=== PATIENT | male | born 1960 | race Caucasian/White ===

== ENCOUNTER 2016-07-19 15:57 | Emergency (ER) | payer OTHER ==
[~2016-07-19] VITALS: Ht 182.9 cm; Wt 93.0 kg
[~2016-07-19 15:57] MED LIST: ATORVASTATIN CA40 MG PO; BUFFERIN LOW DO81 MG PO; PLAVIX 75MG TAB75 MG PO
--- NOTE | 2016-07-19 16:17 | ED GI/GU/ABDOMINAL COMPLAINT ---
History of Present Illness General Chief Complaint: General Adult Stated Complaint: LOWER BACK PAIN, BLOOD IN URINE HAD MRI 07-19 Vital Signs & Intake/Output Vital Signs & Intake/Output Vital Signs Date Time Temp Pulse Resp B/P B/P Pulse O2 O2 Flow FiO2 Mean Ox Delivery Rate 07/19 1606 97.4 73 16 146/88 97 Room Air Allergies Coded Allergies: oxycodone (From OXYCONTIN) (VOMITING 07/19/16) Reconcile Medications Aspirin (Children's Aspirin) 81 MG TAB 81 MG PO DAILY stroke Atorvastatin Calcium (Lipitor) 40 MG TAB 40 MG PO 1700 stroke Clopidogrel Bisulfate (Plavix) 75 MG TAB 1 TAB PO DAILY STROKE Triage Note: PT STATES HE HAS BLOOD IN HIS URINE. PT REPORTS JUST NOTICING IN 15 MINUTES AGO Past History Travel History Traveled to [place] past 21 day No Medical History Neurological: NONE EENT: NONE Cardiovascular: NONE Respiratory: NONE Gastrointestinal: NONE Hepatic: NONE Renal: NONE Musculoskeletal: chronic back pain, disk herniation Psychiatric: NONE Endocrine: NONE Blood Disorders: NONE Cancer(s): NONE History of MRSA: No History of VRE: No History of CDIFF: No Influenza Vaccine: 11/23/13 Surgical History Surgical History: non-contributory Psychosocial History Who do you live with Patient/Self Services at Home None What is your primary language Setswana Tobacco Use: Current Daily Use Daily Tobacco Use Amount/Type: => 5 Cigarettes daily ETOH Use: occasional use Illicit Drug Use: marijuana Departure Departure Condition: Stable Referrals: DELMY MITCHELL,TYESHA Munson (PCP/Family) Departure Forms: Customer Survey General Discharge Information
--- NOTE | 2016-07-19 16:35 | ED GI/GU/ABDOMINAL COMPLAINT ---
See Addendum History of Present Illness General Chief Complaint: General Adult Stated Complaint: LOWER BACK PAIN, BLOOD IN URINE HAD MRI 07-19 Source: patient Exam Limitations: no limitations Vital Signs & Intake/Output Vital Signs & Intake/Output Vital Signs Date Time Temp Pulse Resp B/P B/P Pulse O2 O2 Flow FiO2 Mean Ox Delivery Rate 07/19 1811 97.0 74 22 148/89 96 Room Air 07/19 1703 98.0 70 20 133/74 96 Room Air 07/19 1606 97.4 73 16 146/88 97 Room Air Allergies Coded Allergies: oxycodone (From OXYCONTIN) (VOMITING 07/19/16) Reconcile Medications Aspirin (Ecotrin*) 81 MG TABLET.DR 1 TAB PO DAILY HEART/BLOOD (Reported) Atorvastatin Calcium (Lipitor) 40 MG TABLET 1 TAB PO DAILY CHOLESTEROL ( Reported) Clopidogrel Bisulfate (Plavix) 75 MG TABLET 1 TAB PO DAILY BLOOD THINNER ( Reported) Cyclobenzaprine HCl 10 MG TABLET 1 TAB PO TID MUSCLE SPASMS (Reported) Gabapentin (Neurontin) (Unknown Strength) CAPSULE (Unknown Dose) PO TID NERVE PAIN (Reported) Hydrocodone/Acetaminophen ([place] 7.5-325 Tablet) 7.5 MG-325 MG TABLET 1 TAB PO PRN PAIN (Reported) Triage Note: PT STATES HE HAS BLOOD IN HIS URINE. PT REPORTS JUST NOTICING IN 15 MINUTES AGO Triage Nurses Notes Reviewed? yes Duration: minute(s): (ALSO) Timing: single episode today Quality/Severity: severe HPI: Patient presents for evaluation of abrupt onset of hematuria that began shortly before arrival to the emergency department. Patient states that he has chronic back pain and this is being evaluated by an MRI scan. Patient denies any unusual back pain associated with the bloody urine. He does refer a past history of bladder cancer with subsequent resection. He denies any associated fever or cold symptoms. Past History Travel History Traveled to [place] past 21 day No Medical History Any Pertinent Medical History? see below for history Neurological: NONE EENT: NONE Cardiovascular: NONE Respiratory: NONE Gastrointestinal: NONE Hepatic: NONE Renal: NONE Musculoskeletal: chronic back pain, disk herniation Psychiatric: NONE Endocrine: NONE Blood Disorders: NONE Cancer(s): NONE History of MRSA: No History of VRE: No History of CDIFF: No Influenza Vaccine: 11/23/13 Surgical History Surgical History: non-contributory Psychosocial History Who do you live with Patient/Self Services at Home None What is your primary language Turkish Tobacco Use: Current Daily Use Daily Tobacco Use Amount/Type: => 5 Cigarettes daily ETOH Use: occasional use Illicit Drug Use: marijuana Family History Hx Contributory? No Review of Systems Review of Systems Constitutional: Reports: no symptoms. EENTM: Reports: no symptoms. Respiratory: Reports: no symptoms. Cardiovascular: Reports: no symptoms. GI: Reports: no symptoms. Genitourinary: Reports: see HPI. Musculoskeletal: Reports: no symptoms. Skin: Reports: no symptoms. Neurological/Psychological: Reports: no symptoms. Hematologic/Endocrine: Reports: no symptoms. Immunologic/Allergic: Reports: no symptoms. All Other Systems: Reviewed and Negative Physical Exam Physical Exam Gastrointestinal: SEE BELOW Comments: Gen.: Well-nourished, well-developed, no acute respiratory distress. Head: Normocephalic, atraumatic. Eyes: Normal inspection bilaterally Ears: Normal inspection bilaterally Nose: Normal inspection Throat/mouth : Moist mucosa Neck: Supple, full range of motion, no goiter Heart: Regular rate and rhythm Lungs: Quiet respirations Chest: Nontender Back: Normal range of motion Abdomen: Soft, nontender, nondistended, normal bowel sounds Extremities: Normal range of motion grossly, equal radial pulses, no cyanosis clubbing or edema Neurologic: Cranial nerves grossly intact, speech is clear Skin: warm and dry Psychiatric: Calm, cooperative, no apparent delusions or hallucinations Core Measures ACS in differential dx? No Severe Sepsis Present: No Septic Shock Present: No Progress Differential Diagnosis: UTI/pyelo, BLADDER CANCER Plan of Care: Orders Procedure Date/time Status URINALYSIS 07/19 1634 Complete PROTHROMBIN TIME 07/19 1634 Active CBC WITHOUT DIFFERENTIAL 07/19 1634 Complete BASIC METABOLIC PANEL 07/19 1634 Complete Laboratory Tests 07/19/16 1657: Urine Color BLDY H, Urine Clarity TURBD H, Urine pH 6.5, Ur Specific [place] 1.010, Urine Protein 100 H, Urine Ketones TRACE H, Urine Nitrite POS H, Urine Bilirubin NEG@ICTO, Urine Urobilinogen 0.2, Ur Leukocyte Esterase SMALL H, Ur Microscopic SEDIMENT EXAMINED, Urine RBC PACKD H, Urine WBC 5-10 H, Urine Hemoglobin LARGE H, Urine Glucose NEG 07/19/16 1654: Anion Gap 10, Estimated GFR > 60, BUN/Creatinine Ratio 14.0, Glucose 91, Calcium 9.2, PT Pending, INR Pending, CBC w Diff NO MAN DIFF REQ, RBC 4.53 L, MCV 94.9 H, MCH 32.2 H, RDW 13.5, MPV 8.3, Gran % 56.1, Lymphocytes % 27.6, Monocytes % 12.7 H, Eosinophils % 2.8, Basophils % 0.8, Absolute Granulocytes 3.3, Absolute Lymphocytes 1.6, Absolute Monocytes 0.7 H, Absolute Eosinophils 0.2, Absolute Basophils 0, PUBS MCHC 33.9 Diagnostic Imaging: Discussed w/RAD: CT Scan. Radiology Impression: PATIENT: EFRAÍN HUERTA PRESENT AGE: 56 PATIENT ACCOUNT NO: [id number] : 58 LOCATION: [facility] ORDERING PHYSICIAN: NIKOLAS VALDEZ MD SERVICE DATE: 07/19/16 EXAM TYPE: CAT - CT ABD & PELVIS W/O IV CONTRAS EXAMINATION: CT ABDOMEN AND PELVIS WITHOUT CONTRAST CLINICAL INFORMATION: Lower back pain and hematuria. Renal colic. COMPARISON: Multiple priors, most recent abdominal ultrasound dated 11/09/[address] abdomen and pelvis dated 04/09/2007. TECHNIQUE: Multidetector volumetric imaging was performed from the superior aspect of the liver through the pubic symphysis. Sagittal and coronal reformatted images were obtained on the technologist's workstation. DLP: 354.8 mGy-cm. FINDINGS: LUNG BASES: The visualized lung bases are unremarkable. LIVER, GALLBLADDER, AND BILIARY TREE: The liver is normal in size, shape, and attenuation. No focal hepatic lesion or biliary ductal dilatation is present. The gallbladder is unremarkable with no evidence of radiopaque gallstones, gallbladder wall thickening, or obvious pericholecystic inflammatory changes. PANCREAS: Unremarkable. SPLEEN: Unremarkable. ADRENAL GLANDS: Unremarkable. KIDNEYS AND URETERS: The kidneys are normal in size, shape, and attenuation. No hydronephrosis, hydroureter, or calculi seen. No perinephric stranding. BLADDER: Partially distended. There is a 3.6 x 3.8 x 2.8 cm soft tissue mass within the posterior left urinary bladder with adjacent bladder wall thickening. A neoplastic process is suspected and direct visualization as well as histopathologic correlation is recommended to help further characterize. There is no associated left-sided hydronephrosis. GASTROINTESTINAL TRACT: There is a sliding-type hiatal hernia. There is no large or small bowel obstruction. The appendix is normal. There is no intra-abdominal free air or free fluid. ABDOMINAL WALL: No significant hernia is appreciated. LYMPH NODES: Normal. VASCULAR: The abdominal aorta is nondilated. There are scattered atherosclerotic calcifications throughout the abdominal aorta and its branch vessels. The IVC is unremarkable. PELVIC VISCERA: The prostate and seminal vesicles are unremarkable. There are multiple phleboliths within the pelvis. OSSEOUS STRUCTURES: There is no lytic or blastic osseous lesion. A right -sided laminectomy is noted at L4-L5. There are mild degenerative changes within the visualized lower thoracic and lumbar spine. IMPRESSION: 1. Soft tissue mass within the posterior left aspect of the urinary bladder with associated adjacent bladder wall thickening. A neoplastic process is suspected and direct visualization as well as histopathologic correlation is recommended to help further characterize. No associated hydroureter. 2. No nephrolithiasis or hydronephrosis. 3. No large or small bowel obstruction. Normal appendix. DICTATED BY: SUBHA WOO MD DATE/TIME DICTATED:07/19/161755 RIB CHOPPER:SAY DATE/TIME TRANSCRIBED:07/19/161755 CONFIDENTIAL, DO NOT COPY WITHOUT APPROPRIATE AUTHORIZATION. <Electronically signed in Other Vendor System> SIGNED BY: SUBHA WOO MD 07/19/16 5714 Initial ED EKG: none Comments: 07/19/2016 6:31:08 PM I have updated Efraín on his test results. He states his urologist did recently so I have paged Dr. Benoit. Departure Departure Disposition: HOME OR SELF CARE Condition: Stable Clinical Impression Primary Impression: Bladder cancer Qualifiers: Bladder location: posterior wall Qualified Code: C67.4 - Malignant neoplasm of posterior wall of bladder Referrals: MARÍA MITCEHLL,CAMACHO BROCK MD,TYESHA Munson (PCP/Family) Additional Instructions: Follow-up with Dr. Hobson to reevaluate your bladder, given the mass seen on CAT scan. Maintained a good fluid intake. Return if you're unable to urinate or empty her bladder fully with or any other concerns or worsening. Please note that there might be incidental findings in your evaluation that are unrelated to the current emergency department visit. Please notify your primary care doctor about this emergency department visit in order to obtain and review all of the testing performed so that these incidental findings can be monitored as needed. If you had an x-ray performed, please understand that some fractures may not be seen on the initial set of x-rays. If your symptoms persist you might need a repeat set of x-rays to check for such a fracture. If you had a laceration evaluated, please understand that foreign bodies such as glass or wood may not be visible to the naked eye or on plain x-rays. If the wound becomes red, swollen, increasingly more painful or if there is any drainage from the wound, please have it reevaluated by a physician for the possibility of a retained foreign body. Thank you for choosing the [facility] Department for your care. It was a pleasure to serve you today. Nikolas Valdez M.D. [facility] Departure Forms: Customer Survey General Discharge Information
[2016-07-19 17:10] LABS: ABSOLUTE BASOPHIL COUNT 0 /CUMM (0.0-0.2); ABSOLUTE EOSINOPHIL COUNT 0.2 /CUMM (0.0-0.7); ABSOLUTE GRANULOCYTE CT 3.3 /CUMM (1.4-6.5); ABSOLUTE LYMPH COUNT 1.6 /CUMM (1.2-3.4); ABSOLUTE MONOCYTE COUNT 0.7 /CUMM (0.10-0.60); BASOPHIL % 0.8 % (0.0-2.0); EOSINOPHIL % 2.8 % (0-5); GRANULOCYTE % 56.1 % (42.2-75.2); MEAN CORPUSCULAR HGB 32.2 PG (27.0-31.0); MEAN CORPUSCULAR HGB CONC 33.9 G/DL (33.0-37.0); MEAN CORPUSCULAR VOLUME 94.9 FL (80.0-94.0); MEAN PLATELET VOLUME 8.3 FL (7.4-10.4); PLATELET COUNT 199 /CUMM (130-400); RBC DISTRIBUTION WIDTH 13.5 % (11.5-14.5); RED BLOOD CELL CT 4.53 /CUMM (4.70-6.10); WHITE BLOOD CELL COUNT 5.9 /CUMM (4.8-10.8)
[2016-07-19 17:18] LABS: PT 11.6 SEC (9.4-12.5)
[2016-07-19] MEDS ORDERED: LIPITOR40 M1 PO (17:45)
[2016-07-19] MEDS ORDERED: ASPIRIN EC81 M1 PO (17:46)
[2016-07-19] MEDS ORDERED: PLAVIX75 M1 PO (17:46)
[2016-07-19] MEDS ORDERED: NEURONTIN300 M1 PO (17:46)
[2016-07-19] MEDS ORDERED: NORCO 7.5-3251 EACH PO (17:47)
[2016-07-19] MEDS ORDERED: CYCLOBENZAPRINE10 M1 PO (17:47)
[2016-07-19 18:11] VITALS: BP 148/89
--- NOTE | 2016-07-19 18:15 | CT SCAN REPORT ---
EXAMINATION: CT ABDOMEN AND PELVIS WITHOUT CONTRAST CLINICAL INFORMATION: Lower back pain and hematuria. Renal colic. COMPARISON: Multiple priors, most recent abdominal ultrasound dated 11/09/[address] abdomen and pelvis dated 04/09/2007. TECHNIQUE: Multidetector volumetric imaging was performed from the superior aspect of the liver through the pubic symphysis. Sagittal and coronal reformatted images were obtained on the technologist's workstation. DLP: 354.8 mGy-cm. FINDINGS: LUNG BASES: The visualized lung bases are unremarkable. LIVER, GALLBLADDER, AND BILIARY TREE: The liver is normal in size, shape, and attenuation. No focal hepatic lesion or biliary ductal dilatation is present. The gallbladder is unremarkable with no evidence of radiopaque gallstones, gallbladder wall thickening, or obvious pericholecystic inflammatory changes. PANCREAS: Unremarkable. SPLEEN: Unremarkable. ADRENAL GLANDS: Unremarkable. KIDNEYS AND URETERS: The kidneys are normal in size, shape, and attenuation. No hydronephrosis, hydroureter, or calculi seen. No perinephric stranding. BLADDER: Partially distended. There is a 3.6 x 3.8 x 2.8 cm soft tissue mass within the posterior left urinary bladder with adjacent bladder wall thickening. A neoplastic process is suspected and direct visualization as well as histopathologic correlation is recommended to help further characterize. There is no associated left-sided hydronephrosis. GASTROINTESTINAL TRACT: There is a sliding-type hiatal hernia. There is no large or small bowel obstruction. The appendix is normal. There is no intra-abdominal free air or free fluid. ABDOMINAL WALL: No significant hernia is appreciated. LYMPH NODES: Normal. VASCULAR: The abdominal aorta is nondilated. There are scattered atherosclerotic calcifications throughout the abdominal aorta and its branch vessels. The IVC is unremarkable. PELVIC VISCERA: The prostate and seminal vesicles are unremarkable. There are multiple phleboliths within the pelvis. OSSEOUS STRUCTURES: There is no lytic or blastic osseous lesion. A right-sided laminectomy is noted at L4-L5. There are mild degenerative changes within the visualized lower thoracic and lumbar spine. IMPRESSION: 1. Soft tissue mass within the posterior left aspect of the urinary bladder with associated adjacent bladder wall thickening. A neoplastic process is suspected and direct visualization as well as histopathologic correlation is recommended to help further characterize. No associated hydroureter. 2. No nephrolithiasis or hydronephrosis. 3. No large or small bowel obstruction. Normal appendix.
== END 2016-07-19 19:00 ==
LOC: ERH 15:57
PROVIDERS: Emergency Medicine
DX: C67.4 Malignant neoplasm of posterior wall of bladder (principal); R31.9 Hematuria, unspecified
CPT/HCPCS: 74176; 81001

== ENCOUNTER 2017-04-04 10:52 | Inpatient (IN) | payer OTHER, MEDICARE ==
[~2017-04-04] VITALS: Ht 182.9 cm; Wt 97.5 kg
[~2017-04-04 10:52] MED LIST changes: +ASPIRIN EC81 M1 PO; +CYCLOBENZAPRINE10 M1 PO; +LIPITOR40 M1 PO; +NEURONTIN300 M1 PO; +NORCO 7.5-3251 EACH PO; +PLAVIX75 M1 PO
--- NOTE | 2017-04-04 11:37 | CT SCAN REPORT ---
EXAMINATION: CT HEAD WITHOUT CONTRAST CLINICAL INFORMATION: Stroke symptoms. COMPARISON: MRI of the brain from 03/07/2015. TECHNIQUE: Contiguous axial imaging was performed from the skull base to vertex without intravenous administration of contrast. DLP: 632 mGy-cm FINDINGS: There is chronic encephalomalacia and gliosis involving the right MCA territory, unchanged from the prior study. No definitive evolving territorial infarct is evident. No hemorrhage. The ventricles, sulci, and extra-axial series of spaces are normal in caliber and configuration apart from some mild ex vacuo dilatation of the right lateral ventricle, unchanged. No extra-axial collection, mass effect, or shift of the normally midline structures. No acute osseous abnormality. The imaged paranasal sinuses, mastoid air cells and middle ear cavities are clear. No acute soft tissue findings. IMPRESSION: Chronic areas of infarct in the right MCA territory. No convincing superimposed acute brain ischemia. No evidence of intracranial hemorrhage. The referring provider has been paged to directly communicate these results per stroke protocol.
[2017-04-04 11:57] LABS: ABSOLUTE BASOPHIL COUNT 0.1 /CUMM (0.0-0.2); ABSOLUTE EOSINOPHIL COUNT 0.1 /CUMM (0.0-0.7); ABSOLUTE GRANULOCYTE CT 3.6 /CUMM (1.4-6.5); ABSOLUTE LYMPH COUNT 1.3 /CUMM (1.2-3.4); ABSOLUTE MONOCYTE COUNT 0.6 /CUMM (0.10-0.60); BASOPHIL % 0.9 % (0.0-2.0); EOSINOPHIL % 1.6 % (0-5); GRANULOCYTE % 63.5 % (42.2-75.2); HEMATOCRIT 47.2 % (42-52); MEAN CORPUSCULAR HGB 30.8 PG (27.0-31.0); MEAN CORPUSCULAR VOLUME 90.4 FL (80.0-94.0); MEAN PLATELET VOLUME 7.9 FL (7.4-10.4); PLATELET COUNT 219 /CUMM (130-400); RBC DISTRIBUTION WIDTH 14.4 % (11.5-14.5); RED BLOOD CELL CT 5.22 /CUMM (4.70-6.10); WHITE BLOOD CELL COUNT 5.7 /CUMM (4.8-10.8)
[2017-04-04 12:11] LABS: PT 11.3 SEC (9.4-12.5); PTT 28 SEC (25-37)
--- NOTE | 2017-04-04 12:33 | RADIOLOGY REPORT ---
EXAMINATION: XR PORTABLE CHEST CLINICAL INFORMATION: Shortness of breath with bilateral wheezing COMPARISON: 03/05/2015 TECHNIQUE: Portable AP upright view of the chest was obtained. FINDINGS: No significant abnormality is noted involving the heart, lungs, mediastinum, bony thorax or soft tissues. IMPRESSION: Unremarkable examination.
--- NOTE | 2017-04-04 12:37 | ED NEURO DEFICIT/STROKE ---
History of Present Illness General Chief Complaint: Neuro Symptoms/ Deficit Stated Complaint: PT STATES "I HAD A STROKE BEFORE. I FEEL WEIRD" Source: patient, old records Exam Limitations: no limitations Vital Signs & Intake/Output Vital Signs & Intake/Output Vital Signs Date Time Temp Pulse Resp B/P B/P Pulse O2 O2 Flow FiO2 Mean Ox Delivery Rate 04/04 1252 98.1 102 18 137/97 95 04/04 1151 Room Air 04/04 1109 98.5 115 18 140/85 98 Room Air Allergies Coded Allergies: oxycodone (From OXYCONTIN) (VOMITING 07/19/16) Reconcile Medications Aspirin (Ecotrin*) 81 MG TABLET.DR 1 TAB PO DAILY HEART/BLOOD (Reported) Atorvastatin Calcium (Lipitor) 40 MG TABLET 1 TAB PO DAILY CHOLESTEROL ( Reported) Clopidogrel Bisulfate (Plavix) 75 MG TABLET 1 TAB PO DAILY BLOOD THINNER ( Reported) Cyclobenzaprine HCl 10 MG TABLET 1 TAB PO TID MUSCLE SPASMS (Reported) Gabapentin (Neurontin) (Unknown Strength) CAPSULE (Unknown Dose) PO TID NERVE PAIN (Reported) Hydrocodone/Acetaminophen ([place] 7.5-325 Tablet) 7.5 MG-325 MG TABLET 1 TAB PO PRN PAIN (Reported) Triage Note: C/O FEELING LIGHTHEADED WITH LEFT HAND NUMBNESS X 1 HOUR, SXS STARTED AT 1000. NO FACIAL DROOP. SPEECH CLEAR. PMH; CVA 2015. Triage Nurses Notes Reviewed? yes HPI: 56M PMH stroke 1 year ago with multiple right sided infarcts in right MCA distribution, smoker, presenting with feeling of lightheadedness, anxiety, mild confusion since waking up this morning, reporting symptoms consistent with stroke 1 year ago. Last seen and felt normal last night, unclear of onset, could have been while sleeping, out of tPA window. No other complaints. Denies weakness, numbness, paresthesia, vision changes, facial droop, dysphagia, ataxia , imbalance, apraxia. Has had outpatient workup of carotid stenosis, 100% on right, 30% on left, without intervention. Takes Plavix and statin for stroke. Denies chest pain, SOB, abdominal pain. Past History Travel History Traveled to [place] past 21 day No Medical History Any Pertinent Medical History? see below for history Neurological: NONE EENT: NONE Cardiovascular: NONE Respiratory: NONE Gastrointestinal: NONE Hepatic: NONE Renal: NONE Musculoskeletal: chronic back pain, disk herniation Psychiatric: NONE Endocrine: NONE Blood Disorders: NONE Cancer(s): NONE History of MRSA: No History of VRE: No History of CDIFF: No Surgical History Surgical History: non-contributory Psychosocial History Who do you live with Patient/Self Services at Home None What is your primary language German Tobacco Use: Current Daily Use Daily Tobacco Use Amount/Type: => 5 Cigarettes daily ETOH Use: occasional use Family History Hx Contributory? No Review of Systems Review of Systems Constitutional: Reports: no symptoms. EENTM: Reports: no symptoms. Respiratory: Reports: no symptoms. Cardiovascular: Reports: no symptoms. GI: Reports: no symptoms. Genitourinary: Reports: no symptoms. Musculoskeletal: Reports: no symptoms. Skin: Reports: no symptoms. Neurological/Psychological: Reports: see HPI. Hematologic/Endocrine: Reports: no symptoms. Immunologic/Allergic: Reports: no symptoms. All Other Systems: Reviewed and Negative Physical Exam Physical Exam General Appearance: well developed/nourished, no apparent distress Head: atraumatic, normal appearance Eyes: Bilateral: normal appearance, PERRL, EOMI. Ears, Nose, Throat: normal ENT inspection, moist mucous membrane Neck: normal inspection, supple, full range of motion Respiratory: chest non-tender, no respiratory distress, wheezing Cardiovascular: regular rate/rhythm Peripheral Pulses: 2+ radial (R), 2+ radial (L) Gastrointestinal: soft, non-tender Back: normal inspection, normal range of motion Extremities: normal range of motion Psychiatric: awake, alert, oriented x 3 Cranial Nerves: normal hearing, normal speech, PERRL Coordination/Gait: normal finger to nose Motor/Sensory: weak motor strength RLE Reflexes: 2+: knee (R), knee (L). Skin: intact, normal color, warm/dry Core Measures CVA/TIA Diagnosis: Yes NIH Stroke Scale NIH Stroke Scale Response Value Level of Consciousness alert 0 LOC Questions answers both correctly 0 LOC Commands obeys both correctly 0 Best Gaze normal 0 Visual [place]oto no visual loss 0 Facial Paresis normal 0 Motor Arm - Left no drift 0 Motor Arm - Right no drift 0 Motor Leg - Left no drift 0 Motor Leg - Right drift 1 Limb Ataxia no ataxia 0 Sensory normal 0 Best Language no aphasia 0 Dysarthria normal articulation 0 Extinction and Inattention no neglect 0 Total 1 Date Last Known Well: 04/03/17 Time Last Known Well: 2199 Symptom Start Date: 04/04/17 Symptom Start Time: 0800 Reason tPA not ordered Medical Contraindication Swallow Evaluation Pass Swallow eval date 04/04/17 Swallow eval time 1145 Sepsis Present: No Sepsis Focused Exam Completed? No Progress Differential Diagnosis: acute glaucoma, Valdez's Palsy, drug intoxication, electrolyte imbalance, encephalitis, hypoglycemia, intracranial Hem., intracranial mass/tumor, meningitis, migraine MOORE, seizure disorder, stroke, subarachnoid Hem., vertebrobasilar insuff. Plan of Care: Orders Procedure Date/time Status URINE DRUGS OF ABUSE 04/04 1133 Active URINALYSIS 04/04 1133 Active TROPONIN LEVEL 04/04 1133 Complete PARTIAL THROMBOPLASTIN TIME 04/04 1133 Complete PROTHROMBIN TIME 04/04 1133 Complete COMPREHENSIVE METABOLIC PANEL 04/04 1133 Complete CBC WITHOUT DIFFERENTIAL 04/04 1133 Complete B-TYPE NATRIURETIC PEP (BNP) 04/04 1133 Complete EKG 04/04 1126 Active Laboratory Tests 04/04/17 1145: Anion Gap 13, Estimated GFR > 60, BUN/Creatinine Ratio 8.8, Glucose 114 H, Calcium 9.2, Total Bilirubin 0.3, AST 53, ALT 33, Alkaline Phosphatase 104, Troponin I < 0.01, Thf-V-Upsalrjangj Pept 23.5, Total Protein 7.2, Albumin 4.2, Globulin 3.0, Albumin/Globulin Ratio 1.4, PT 11.3, INR 1.08, APTT 28, CBC w Diff NO MAN DIFF REQ, RBC 5.22, MCV 90.4, MCH 30.8, MCHC 34.0, RDW 14.4, MPV 7.9, Gran % 63.5, Lymphocytes % 23.3, Monocytes % 10.7 H, Eosinophils % 1.6, Basophils % 0.9, Absolute Granulocytes 3.6, Absolute Lymphocytes 1.3, Absolute Monocytes 0.6, Absolute Eosinophils 0.1, Absolute Basophils 0.1 Diagnostic Imaging: Viewed by Me: Radiology Read, CT Scan. Discussed w/RAD: Radiology Read, CT Scan. Radiology Impression: PATIENT: JEFERSON HUERTA PRESENT AGE: 56 PATIENT ACCOUNT NO: [id number] : 58 LOCATION: [facility] ORDERING PHYSICIAN: Margie Alexandra MD SERVICE DATE: 04/04/17-1116 EXAM TYPE: CAT - CT HEAD WO IV CONTRAST Addendum: This critical result was communicated with Dr. Bain at 11:37AM on 04/04/2017 and the content and urgency was understood at the time of direct communication. Addendum Signed by: Rowdy Maddox MD 04/04/171136 EXAMINATION: CT HEAD WITHOUT CONTRAST CLINICAL INFORMATION : Stroke symptoms. COMPARISON: MRI of the brain from 03/07/2015. TECHNIQUE: Contiguous axial imaging was performed from the skull base to vertex without intravenous administration of contrast. DLP: 632 mGy-cm FINDINGS: There is chronic encephalomalacia and gliosis involving the right MCA territory, unchanged from the prior study. No definitive evolving territorial infarct is evident. No hemorrhage. The ventricles, sulci, and extra-axial series of spaces are normal in caliber and configuration apart from some mild ex vacuo dilatation of the right lateral ventricle, unchanged. No extra-axial collection, mass effect, or shift of the normally midline structures. No acute osseous abnormality. The imaged paranasal sinuses, mastoid air cells and middle ear cavities are clear. No acute soft tissue findings. IMPRESSION: Chronic areas of infarct in the right MCA territory. No convincing superimposed acute brain ischemia. No evidence of intracranial hemorrhage. The referring provider has been paged to directly communicate these results per stroke protocol. DICTATED BY: Rowdy Maddox MD DATE/TIME DICTATED:04/04/171130 TUMBLING AND ROLLING SUPERVISOR: SAY DATE/TIME TRANSCRIBED:04/04/171130 CXR Impression: PATIENT: JEFERSON HUERTA PRESENT AGE : 56 PATIENT ACCOUNT NO: [id number] : 58 LOCATION: [facility] ORDERING PHYSICIAN: Nikhil Bain MD SERVICE DATE: 04/04/17 EXAM TYPE: RAD - XRY-PORTABLE CHEST XRAY EXAMINATION: XR PORTABLE CHEST CLINICAL INFORMATION: Shortness of breath with bilateral wheezing COMPARISON: 03/05/2015 TECHNIQUE: Portable AP upright view of the chest was obtained. FINDINGS: No significant abnormality is noted involving the heart, lungs, mediastinum, bony thorax or soft tissues. IMPRESSION: Unremarkable examination. DICTATED BY: Alex Theodore MD DATE/TIME DICTATED:04/04/171224 TUMBLING AND ROLLING SUPERVISOR:SAY DATE/TIME TRANSCRIBED:04/04/171224 Initial ED EKG: normal QRS complex, normal sinus rhythm, no ST T wave changes Departure Departure Disposition: STILL A PATIENT Condition: Stable Clinical Impression Primary Impression: Acute CVA (cerebrovascular accident) Referrals: Vijay MITCHELL,Jack Munson (PCP/Family) Departure Forms: Customer Survey General Discharge Information Admission Note Spoke With: Cassidy Romero MD Documentation of Exam: Documentation of any treatments & extenuating circumstances including Concerns Regarding Discharge (functional status, medication knowledge or non-compliance, living conditions, etc.) that warrant an admission rather than observation: RLE WEAKNESS, LIGHTHEADEDNESS, CONFUSION WITH SYMPTOMS CONSISTENT WITH PRIOR STROKE, OUT OF TPA WINDOW, WILL BE ADMITTED FOR ACUTE CVA FOR TELEMETRY MONITORING, NEUROLOGY CONSULT, ALSO WORKUP OF CAROTID STENOSIS WITH HISTORY OF BILATERAL DISEASE WITH CONCERN OF WORSENING OF STENOSIS CAUSING ISCHEMIA.
--- NOTE | 2017-04-04 14:06 | History & Physical ---
En Ralph 04/04/17 1405: General Information and HPI MD Statement: I have seen and personally examined JEFERSON HUERTA and documented this H&P. Source of Information: patient Exam Limitations: no limitations History of Present Illness: This is a 56-year-old gentleman with past medical history significant for chronic back pain, bladder cancer, prior CVA in 2016, right cervical ICA occlusion, who presents to the emergency room with chief complaint of lightheadedness and dizziness. According to the patient, he was getting into the car to get to work around 10 AM when he felt lightheaded and weak. His symptoms did not improve after sitting down. He also experienced numbness in her left fingers and had palpitation. He denies having any slurred speech, facial droop, nausea, vomiting, weakness in extremities. Patient states that his symptoms were similar to the time he had a stroke last year and this made him concerned and he presented to the ED. Per patient, his symptoms lasted around 2 hours and resolved spontaneously. He reports that he took it all his medications including aspirin and Plavix and statin this morning. The patient also reports having diarrhea for the past 2 days. He had 4 bowel movements this morning. He states that he has been able to drink enough fluids and did not feel dehydrated. No blood in the stool no abdominal pain no fever. The patient states that he received BCG therapy for his bladder cancer last month. He smokes 1 pack per day and drinks 6 packs of beer daily denies illicit drug use. Allergies/Medications Allergies: Coded Allergies: oxycodone (From OXYCONTIN) (VOMITING 07/19/16) Home Med list Aspirin (Ecotrin*) 81 MG TABLET.DR 1 TAB PO DAILY HEART/BLOOD (Reported) Atorvastatin Calcium (Lipitor) 40 MG TABLET 1 TAB PO DAILY CHOLESTEROL Please take 2 pills daily from 04/06 to 04/11. Then continue taking 1 pill daily starting on 04/12. Clopidogrel Bisulfate (Plavix) 75 MG TABLET 1 TAB PO DAILY BLOOD THINNER ( Reported) Cyclobenzaprine HCl 10 MG TABLET 1 TAB PO TID MUSCLE SPASMS (Reported) Gabapentin (Neurontin) (Unknown Strength) CAPSULE (Unknown Dose) PO TID NERVE PAIN (Reported) Hydrocodone/Acetaminophen ([place] 7.5-325 Tablet) 7.5 MG-325 MG TABLET 1 TAB PO PRN PAIN (Reported) Past History Travel History Traveled to [place] past 21 day No Medical History Neurological: NONE EENT: NONE Cardiovascular: NONE Respiratory: NONE Gastrointestinal: NONE Hepatic: NONE Renal: NONE Musculoskeletal: chronic back pain, disk herniation Psychiatric: NONE Endocrine: NONE Blood Disorders: NONE Cancer(s): NONE History of MRSA: No History of VRE: No History of CDIFF: No Surgical History Surgical History: non-contributory Past Family/Social History Psychosocial History Services at Home: None ETOH Use: occasional use Review of Systems Review of Systems Constitutional: Denies: chills, diaphoresis, fever, malaise, weakness, unexplained weight loss. EENTM: Denies: blurred vision, double vision, visual changes, eye pain, eye drainage, eye tearing, icterus, ear discharge, ear pain, ear redness, hearing changes, nasal congestion, epistaxis, nasal pain, throat pain. Cardiovascular: Reports: palpitations. Denies: chest pain, edema, orthopena, peripheral edema, syncope. Respiratory: Denies: cough, short of breath, sputum production, stridor, wheezing. GI: Reports: diarrhea (Started yesterday). Denies: abdominal pain, bloating, constipation, distention, bowel incontinence, nausea, vomiting. Genitourinary: Denies: dysuria, frequency, hematuria, hesitation, nocturia, pain, urgency. Musculoskeletal: Reports: back pain (chronic). Denies: joint pain, joint swelling, muscle pain, muscle stiffness, neck pain. Skin: Denies: change in skin color, change in hair/nails. Neurological/Psychological: Reports: numbness (left fingers). Denies: anxiety, headache. Hematologic/Endocrine: Denies: bruising, bleeding, polyuria. Immunologic/Allergic: Denies: splenectomy, HIV/AIDS, lymphadenopathy. All Other Systems: Reviewed and Negative Exam & Diagnostic Data Last 24 Hrs of Vital Signs/I&O Vital Signs Date Time Temp Pulse Resp B/P B/P Pulse O2 O2 Flow FiO2 Mean Ox Delivery Rate 04/04 1252 98.1 102 18 137/97 95 04/04 1151 Room Air 04/04 1109 98.5 115 18 140/85 98 Room Air Intake & Output 04/04 1600 04/04 0800 04/04 0000 Intake Total Output Total Balance Patient 215 lb Weight Weight Reported by Patient Measurement Method Physical Exam General Appearance Alert, Oriented X3, Cooperative, No Acute Distress Skin No Rashes, No Breakdown, No Significant Lesion HEENT Atraumatic, PERRLA, EOMI, Mucous Membr. moist/pink Neck Supple, No JVD, No thryomegaly, +2 Carotid Pulse wo Bruit, No LAD Lymphatic Axillary nl, Cervical nl Cardiovascular Regular Rate, Normal S1, Normal S2, No Murmurs, Gallops, Rubs Lungs expirator wheezes Abdomen Normal Bowel Sounds, Soft, No Tenderness, No Hepatospenomegaly, No Masses Neurological Normal Speech, Strength at 5/5 X4 Ext, Normal Tone, Sensation Intact, Cranial Nerves 3-12 NL, Reflexes 2+ Extremities No Clubbing, No Cyanosis, No Edema, Normal Pulses, No Tenderness/ Swelling Vascular Normal Pulses, Pulses Symmetrical Last 24 Hrs of Labs/Philip: Laboratory Tests 04/04/17 1145: Anion Gap 13, Estimated GFR > 60, BUN/Creatinine Ratio 8.8, Glucose 114 H, Calcium 9.2, Total Bilirubin 0.3, AST 53, ALT 33, Alkaline Phosphatase 104, Troponin I < 0.01, Khj-G-Xctnrbaqutb Pept 23.5, Total Protein 7.2, Albumin 4.2, Globulin 3.0, Albumin/Globulin Ratio 1.4, PT 11.3, INR 1.08, APTT 28, CBC w Diff NO MAN DIFF REQ, RBC 5.22, MCV 90.4, MCH 30.8, MCHC 34.0, RDW 14.4, MPV 7.9, Gran % 63.5, Lymphocytes % 23.3, Monocytes % 10.7 H, Eosinophils % 1.6, Basophils % 0.9, Absolute Granulocytes 3.6, Absolute Lymphocytes 1.3, Absolute Monocytes 0.6, Absolute Eosinophils 0.1, Absolute Basophils 0.1 Diagnostic Data EKG Results Sinus tachycardia, rate 106, no significant change compared to prior, no ST-T wave abnormalities. CXR Results Unremarkable examination. Other Results Past bedside swallow evaluation. Head CT:Chronic areas of infarct in the right MCA territory. No convincing superimposed acute brain ischemia. No evidence of intracranial hemorrhage. Assessment/Plan Assessment: This is a 56-year-old gentleman with past medical history significant for chronic back pain, prior CVA in 2016, right cervical ICA occlusion, who presents to the emergency room with chief complaint of lightheadedness, dizziness, numbness in left fingers. Symptoms resolved at time of her physical exam. Head CT revealing any acute pathology. Assessment #Possible CVA #Tachycardia #History of right cervical ICA occlusion Plan * The patient has passed a 4 hour window for TPA also NIH score is low (01) * lunchroom monitor * Formal swallow evaluation, OT, PT * Patient is on aspirin, Plavix and statin; will continue same for now * Neurology consult * U tox pending * Will check thyroid function tests and lipid panel * Echocardiogram, Doppler carotid, MRI of the head * DVT prophylaxis with subcutaneous Lovenox * The patient is unsure of the dose of gabapentin he takes at home, please confirm dose of gabapentin, meanwhile will continue rest of home medications. * Patient is full code As Ranked By This Provider Problem List: 1. Acute CVA (cerebrovascular accident) Core Measures/Misc (11/09) Acute Coronary Syndrome ACS Diagnosis: No Congestive Heart Failure Congestive Heart Failure Diagnosis No Cerebrovascular Accident CVA/TIA Diagnosis: Yes Date Last Known Well: 04/03/17 Time Last Known Well: 2200 Symptom Start Date: 04/04/17 Symptom Start Time: 1000 Swallow Evaluation Pass VTE (View Protocol) VTE Risk Factors Age>40 No Mechanical VTE Prophylaxis d/t N/A MechProphylax Ordered No VTE Pharm Prophylaxis d/t NA PharmProphylax ordered Sepsis (View protocol) Sepsis Present: No Cassidy Romero MD 04/04/17 1606: Attending MD Review Statement Attending Statement Attending MD Statement: examined this patient, discuss w/resident/PA/THIRD MATE, agreed w/resident/PA/THIRD MATE, reviewed EMR data (avail), discussed with nursing, reviewed images, amended to note Attending Assessment/Plan: 56-year-old male with past medical history significant for chronic back pain, bladder cancer, prior CVA in 2016, right cervical ICA occlusion, presented with feeling dizzy, sick and just different. He came that he woke up in the morning and was doing his chores. He ate a piece of cake and had a cup of coffee and then he was doing some work on his car when he suddenly felt dizzy. He felt that he was not himself. He felt very weak generalized weakness all of a sudden. These are exactly the same symptoms that he experienced previously with his stroke. He got worried and his loyda brought him to the emergency room. In the emergency room according to the patient the symptoms gradually resolved. As per ER physician's evaluation, but resolving by the time patient presented in his NIH stroke scale was only 1. Patient currently denies any further dizziness. He denies any speech difficulty, any weakness in any part of his body. He denies any difficulty with walking. He passed bedside swallow evaluation. Vital Signs Date Time Temp Pulse Resp B/P B/P Pulse O2 O2 Flow FiO2 Mean Ox Delivery Rate 04/04 1454 98.6 101 18 131/90 96 04/04 1252 98.1 102 18 137/97 95 04/04 1151 Room Air 04/04 1109 98.5 115 18 140/85 98 Room Air on exam; aox3, nad. heent: hearing aids in both ears cv; s1,s2, rrr resp; clear abd; soft, nt, bs+ ext; no edema. neuro; strength 5 out of 5 in all 4 extremities otherwise nonfocal. Laboratory Tests 04/04 1145 Chemistry Sodium (137 - 145 mmol/L) 137 Potassium (3.5 - 5.1 mmol/L) 4.1 Chloride (98 - 107 mmol/L) 102 Carbon Dioxide (22 - 30 mmol/L) 22 Anion Gap (5 - 16) 13 BUN (9 - 20 mg/dL) 7 L Creatinine (0.7 - 1.2 mg/dL) 0.8 Estimated GFR (>60 ml/min) > 60 BUN/Creatinine Ratio (7 - 25 %) 8.8 Glucose (65 - 99 mg/dL) 114 H Calcium (8.4 - 10.2 mg/dL) 9.2 Total Bilirubin (0.2 - 1.3 mg/dL) 0.3 Direct Bilirubin (< 0.4 mg/dL) 0.2 AST (17 - 59 U/L) 53 ALT (21 - 72 U/L) 33 Alkaline Phosphatase (< 127 U/L) 104 Troponin I (<0.11 ng/ml) < 0.01 Aeh-H-Wsoncprdzef Pept (<125 pg/mL) 23.5 Total Protein (6.3 - 8.2 g/dL) 7.2 Albumin (3.5 - 5.0 g/dL) 4.2 Globulin (1.9 - 4.2 gm/dL) 3.0 Albumin/Globulin Ratio (1.1 - 2.2 %) 1.4 TSH (0.270 - 4.200 uIU/mL) 1.900 Free T4 (0.64 - 1.79 ng/dL) 0.85 Coagulation PT (9.4 - 12.5 SEC) 11.3 INR (0.90 - 1.17) 1.08 APTT (25 - 37 SEC) 28 Hematology CBC w Diff NO MAN DIFF REQ WBC (4.8 - 10.8 /CUMM) 5.7 RBC (4.70 - 6.10 /CUMM) 5.22 Hgb (14.0 - 18.0 G/DL) 16.0 Hct (42 - 52 %) 47.2 MCV (80.0 - 94.0 FL) 90.4 MCH (27.0 - 31.0 PG) 30.8 MCHC (33.0 - 37.0 G/DL) 34.0 RDW (11.5 - 14.5 %) 14.4 Plt Count (130 - 400 /CUMM) 219 MPV (7.4 - 10.4 FL) 7.9 Gran % (42.2 - 75.2 %) 63.5 Lymphocytes % (20.5 - 51.1 %) 23.3 Monocytes % (1.7 - 9.3 %) 10.7 H Eosinophils % (0 - 5 %) 1.6 Basophils % (0.0 - 2.0 %) 0.9 Absolute Granulocytes (1.4 - 6.5 /CUMM) 3.6 Absolute Lymphocytes (1.2 - 3.4 /CUMM) 1.3 Absolute Monocytes (0.10 - 0.60 /CUMM) 0.6 Absolute Eosinophils (0.0 - 0.7 /CUMM) 0.1 Absolute Basophils (0.0 - 0.2 /CUMM) 0.1 EKG shows sinus rhythm. Ct head: IMPRESSION: Chronic areas of infarct in the right MCA territory. No convincing superimposed acute brain ischemia. No evidence of intracranial hemorrhage. A/P: 56-year-old male with past medical history significant for chronic back pain, bladder cancer, prior CVA in 2016, right cervical ICA occlusion, admitted to telemetry floor with possible TIA versus CVa. Patient claims that he takes aspirin and Plavix From his previous stroke. We will discuss with neurology about the role of switching this to Aggrenox. Neurology will be consulted. Patient has passed bedside swallow evaluation. Patient be getting echo, carotid Doppler, MRI of the brain. Please check lipid profile in the morning and hemoglobin A1c. Please increase the dose of statin to 80 mg. Patient should be seen by physical therapy, occupational therapy. DVT plexus: Lovenox. Patient is a full code.
[2017-04-04 18:27] VITALS: BP 126/82
--- NOTE | 2017-04-04 18:58 | ULTRASOUND REPORT ---
US DUPLEX CAROTID AND VERTEBRAL CLINICAL INFORMATION: Dizziness, COMPARISON: CTA neck March 29 2015. TECHNIQUE: Real-time ultrasound and Doppler techniques (integrating B-mode 2D vascular images, Doppler spectral analysis and color flow Doppler imaging) were utilized to interrogate the extracranial carotid and vertebral arteries bilaterally. The degree of stenosis determined by criteria similar to NASCET. FINDINGS: Right common carotid artery peak systolic velocity is 148 cm/s with an end-diastolic velocity of 16 cm/s. There is no Doppler flow within the right internal carotid artery which was noted to be occluded on the March 29 2015 and neck CTA. There is antegrade flow within the right vertebral artery. There is atherosclerotic calcification of the right carotid bifurcation. Left common carotid artery peak systolic velocity ranges between 90 to 185 cm/s with a maximal end-diastolic velocity of 45 cm/s. Left internal carotid artery peak systolic velocity ranges between 84 and 124 cm/s with a maximal end-diastolic velocity of 57 cm/s. There is antegrade flow within the left vertebral artery. There is calcific atherosclerotic disease of the left carotid bifurcation. IMPRESSION: - Stable appearing chronic occlusion of the right internal carotid artery as demonstrated on the neck CTA from 03/29/2015. - There is a less than 50% stenosis involving the left internal carotid artery by sonographic criteria.
[2017-04-04 21:30] VITALS: BP 120/70
[2017-04-05 06:27] VITALS: BP 126/74
--- NOTE | 2017-04-05 10:37 | Cons- Neurology ---
General Information and HPI Consulting Request Date of Consult: 04/05/17 Requested By: Cassidy Romero MD Reason for Consult: ?stroke Source of Information: patient Exam Limitations: no limitations History of Present Illness: 56-year-old right-handed man with a history of a small right parietal stroke 2 years ago and known right internal carotid artery complete occlusion, and remote traumatic brain injury in the after falling off a building and landing on the concrete, with transient posttraumatic seizure disorder. 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 Around the same time he noticed some numbness and tingling of his left hand. He came to the [facility] ED for further assessment and was subsequently admitted. symptoms resolved within 1 to 2 hours aside from mild tingling of left hand digit 3, but otherwise feels back to normal. He is hoping to be discharged home soon. Since the stroke in 2015, he has been maintained on anti-platelet and statin therapy. However, he continues to smoke cigarettes. Allergies/Medications Allergies: Coded Allergies: oxycodone (From OXYCONTIN) (VOMITING 07/19/16) Home Med List: Aspirin (Ecotrin*) 81 MG TABLET.DR 1 TAB PO DAILY HEART/BLOOD (Reported) Atorvastatin Calcium (Lipitor) 40 MG TABLET 1 TAB PO DAILY CHOLESTEROL ( Reported) Clopidogrel Bisulfate (Plavix) 75 MG TABLET 1 TAB PO DAILY BLOOD THINNER ( Reported) Cyclobenzaprine HCl 10 MG TABLET 1 TAB PO TID MUSCLE SPASMS (Reported) Gabapentin (Neurontin) (Unknown Strength) CAPSULE (Unknown Dose) PO TID NERVE PAIN (Reported) Hydrocodone/Acetaminophen ([place] 7.5-325 Tablet) 7.5 MG-325 MG TABLET 1 TAB PO PRN PAIN (Reported) Current Medications: Current Medications Sig/Donal Start time Last Medication Dose Route Stop Time Status Admin Aspirin Buffered 81 MG DAILY 04/05 1000 AC 04/05 PO 0826 Atorvastatin Calcium 80 MG DAILY@0 04/05 1700 AC PO Atorvastatin Calcium 40 MG DAILY@04/04 1700 DC PO Clopidogrel Bisulfate 75 MG DAILY 04/05 1000 AC 04/05 PO 0826 Enoxaparin Sodium 0 .STK-MED ONE 04/04 1741 DC SC Enoxaparin Sodium 40 MG DAILY 04/04 1448 AC 04/05 SC 0828 Influenza Virus 0.5 ML ONCE ONE 04/04 1944 DC 04/05 Vaccine IM 04/04 1945 0830 Sodium Chloride 1,000 ML Q10H 04/04 1500 DC 04/04 IV 04/05 0059 1511 Review of Systems Review of Systems Constitutional: Reports: no symptoms. EENTM: Reports: hearing changes ( wears bilateral hearing aids). Cardiovascular: Reports: no symptoms. Respiratory: Reports: no symptoms. GI: Reports: no symptoms. Genitourinary: Reports: no symptoms. Musculoskeletal: Reports: back pain. Skin: Reports: no symptoms. Neurological/Psychological: Reports: see HPI. Hematologic/Endocrine: Reports: no symptoms. Past History Travel History Traveled to [place] past 21 day No Medical History Blood Transfusion Hx: No Neurological: CVA EENT: NONE Cardiovascular: NONE Respiratory: NONE Gastrointestinal: NONE Hepatic: NONE Renal: NONE Musculoskeletal: chronic back pain, disk herniation Psychiatric: NONE Endocrine: NONE Blood Disorders: NONE Cancer(s): bladder cancer [employer] WORK[employer]/Reproductive: NONE Surgical History Surgical History: non-contributory Psychosocial History Where Do You Live? Home Services at Home: None Smoking Status: Current Everyday Smoker ETOH Use: occasional use Exam & Diagnostic Data Vital Signs and I&O Vital Signs Date Time Temp Pulse Resp B/P B/P Pulse O2 O2 Flow FiO2 Mean Ox Delivery Rate 04/05 0627 98.3 72 18 126/74 95 Room Air 04/04 2130 98.1 84 18 120/70 95 04/04 1847 97 Room Air 04/04 1827 99.0 90 16 126/82 94 04/04 1742 98.1 94 16 151/77 97 Room Air 04/04 1454 98.6 101 18 131/90 96 04/04 1252 98.1 102 18 137/97 95 04/04 1151 Room Air 04/04 1109 98.5 115 18 140/85 98 Room Air Intake & Output 04/05 1600 04/05 0800 04/05 0000 Intake Total 480 1280 Output Total Balance 480 1280 Intake, IV 800 Intake, Oral 480 480 Patient 215 lb Weight Weight Reported by Patient Measurement Method Physical Exam: Awake alert cooperative in no apparent distress head normocephalic atraumatic neck is supple no audible carotid or cranial bruits Heart regular rate and rhythm abdomen soft extremities without clubbing cyanosis or edema intact peripheral pulses Neurologic exam: He was awake alert oriented to person place time and situation speech was fluent with intact naming repetition comprehension cranial nerves: Visual linn full to confrontation fundi benign pupils equal round react light extraocular movements full facial sensation intact intact muscles of mastication of facial expression symmetric elevation of the uvula palate. symmetric shoulder shrug Midline tongue protrusion hearing intact with hearing aids in place motor: Normal muscle bulk, tone, strength, dexterity, and coordination no abnormal involuntary movements light touch sensation intact tendon reflexes symmetrically trace to absent plantar responses flexor gait not tested Last 48 Hours of Lab Results: Laboratory Tests 04/04 04/04 1630 1145 Chemistry Sodium (137 - 145 mmol/L) 137 Potassium (3.5 - 5.1 mmol/L) 4.1 Chloride (98 - 107 mmol/L) 102 Carbon Dioxide (22 - 30 mmol/L) 22 Anion Gap (5 - 16) 13 BUN (9 - 20 mg/dL) 7 L Creatinine (0.7 - 1.2 mg/dL) 0.8 Estimated GFR (>60 ml/min) > 60 BUN/Creatinine Ratio (7 - 25 %) 8.8 Glucose (65 - 99 mg/dL) 114 H Calcium (8.4 - 10.2 mg/dL) 9.2 Total Bilirubin (0.2 - 1.3 mg/dL) 0.3 Direct Bilirubin (< 0.4 mg/dL) 0.2 AST (17 - 59 U/L) 53 ALT (21 - 72 U/L) 33 Alkaline Phosphatase (< 127 U/L) 104 Troponin I (<0.11 ng/ml) < 0.01 [id number] Pept (<125 pg/mL) 23.5 Total Protein (6.3 - 8.2 g/dL) 7.2 Albumin (3.5 - 5.0 g/dL) 4.2 Globulin (1.9 - 4.2 gm/dL) 3.0 Albumin/Globulin Ratio (1.1 - 2.2 %) 1.4 Triglycerides (<150 mg/dL) 300 H Cholesterol (< 200 MG/DL) 143 LDL Cholesterol, Calc (65 - 129 mg/dL) 30 L HDL Cholesterol (40 - 60 mg/dL) 53 Cholesterol/HDL Ratio (0.00 - 4.88 %) 3 TSH (0.270 - 4.200 uIU/mL) 1.900 Free T4 (0.64 - 1.79 ng/dL) 0.85 Coagulation PT (9.4 - 12.5 SEC) 11.3 INR (0.90 - 1.17) 1.08 APTT (25 - 37 SEC) 28 Hematology CBC w Diff NO MAN DIFF REQ WBC (4.8 - 10.8 /CUMM) 5.7 RBC (4.70 - 6.10 /CUMM) 5.22 Hgb (14.0 - 18.0 G/DL) 16.0 Hct (42 - 52 %) 47.2 MCV (80.0 - 94.0 FL) 90.4 MCH (27.0 - 31.0 PG) 30.8 MCHC (33.0 - 37.0 G/DL) 34.0 RDW (11.5 - 14.5 %) 14.4 Plt Count (130 - 400 /CUMM) 219 MPV (7.4 - 10.4 FL) 7.9 Gran % (42.2 - 75.2 %) 63.5 Lymphocytes % (20.5 - 51.1 %) 23.3 Monocytes % (1.7 - 9.3 %) 10.7 H Eosinophils % (0 - 5 %) 1.6 Basophils % (0.0 - 2.0 %) 0.9 Absolute Granulocytes (1.4 - 6.5 /CUMM) 3.6 Absolute Lymphocytes (1.2 - 3.4 /CUMM) 1.3 Absolute Monocytes (0.10 - 0.60 /CUMM) 0.6 Absolute Eosinophils (0.0 - 0.7 /CUMM) 0.1 Absolute Basophils (0.0 - 0.2 /CUMM) 0.1 Toxicology Urine Opiates Screen (>2000 NG/ML) < 100.00 Methadone Screen (>300 NG/ML) 46 Barbiturate Screen (>200 NG/ML) < 60 Ur Phencyclidine Scrn (>25 NG/ML) < 6.00 Amphetamines Screen (>1000 NG/ML) < 100 U Benzodiazepines Scrn (>200 NG/ML) < 85 Urine Cocaine Screen (>300 NG/ML) < 50 Urine Cannabis Screen (>50 NG/ML) 17.00 Urines Urine Color (YEL,AMB,STR) YEL Urine Clarity (CLEAR) CLEAR Urine pH (5.0 - 8.0) 6.0 Ur Specific [place] (1.001 - 1.035) 1.010 Urine Protein (NEG,<30 MG/DL) NEG Urine Ketones (NEG) NEG Urine Nitrite (NEG) NEG Urine Bilirubin (NEG) NEG Urine Urobilinogen (0.1 - 1.0 EU/dl) 0.2 Ur Leukocyte Esterase (NEG) NEG Ur Microscopic EXAM NOT REQUIRED Urine Hemoglobin (NEG) NEG Urine Glucose (N MG/DL) NEG Imaging/Other Studies: Hd CT FINDINGS: There is chronic encephalomalacia and gliosis involving the right MCA territory, unchanged from the prior study. No definitive evolving territorial infarct is evident. No hemorrhage. The ventricles, sulci, and extra-axial series of spaces are normal in caliber and configuration apart from some mild ex vacuo dilatation of the right lateral ventricle, unchanged. No extra-axial collection, mass effect, or shift of the normally midline structures. No acute osseous abnormality. The imaged paranasal sinuses, mastoid air cells and middle ear cavities are clear. No acute soft tissue findings. IMPRESSION: Chronic areas of infarct in the right MCA territory. No convincing superimposed acute brain ischemia. No evidence of intracranial hemorrhage. The referring provider has been paged to directly communicate these results per stroke protocol. DICTATED BY: Rowdy Maddox MD DATE/TIME DICTATED:04/04/171130 FINDINGS: Right common carotid artery peak systolic velocity is 148 cm/s with an end-diastolic velocity of 16 cm/s. There is no Doppler flow within the right internal carotid artery which was noted to be occluded on the March 29 2015 and neck CTA. There is antegrade flow within the right vertebral artery. There is atherosclerotic calcification of the right carotid bifurcation. Left common carotid artery peak systolic velocity ranges between 90 to 185 cm/s with a maximal end-diastolic velocity of 45 cm/s. Left internal carotid artery peak systolic velocity ranges between 84 and 124 cm/s with a maximal end-diastolic velocity of 57 cm/s. There is antegrade flow within the left vertebral artery. There is calcific atherosclerotic disease of the left carotid bifurcation. IMPRESSION: - Stable appearing chronic occlusion of the right internal carotid artery as demonstrated on the neck CTA from 03/29/2015. - There is a less than 50% stenosis involving the left internal carotid artery by sonographic criteria. DICTATED BY: Nikolas Herman MD DATE/TIME DICTATED:04/04/171848 SNELLER HAND:SAY DATE/TIME TRANSCRIBED:04/04/171848 Assessment/Plan Assessment: possible TIA in a 56-year-old ongoing smoker with known right internal carotid artery occlusion and a prior small right MCA territory ischemic stroke, remote history of traumatic brain injury Recommendations: brain MRI without contrast Echocardiogram and cardiac telemetry continue dual anti-platelet therapy and statin TIA/stroke education smoking cessation Consult Acknowledgment - Thank you for your consult request.
--- NOTE | 2017-04-05 12:13 | PN- Att Addend ---
Attending Addendum Attending Brief Note Patient seen and examined, overall feeling much better. Denies any complaints of dizziness. No acute events overnight. Vital Signs Date Time Temp Pulse Resp B/P B/P Pulse O2 O2 Flow FiO2 Mean Ox Delivery Rate 04/05 0627 98.3 72 18 126/74 95 Room Air 04/04 2130 98.1 84 18 120/70 95 04/04 1847 97 Room Air 04/04 1827 99.0 90 16 126/82 94 04/04 1742 98.1 94 16 151/77 97 Room Air 04/04 1454 98.6 101 18 131/90 96 04/04 1252 98.1 102 18 137/97 95 on exam; aox3, nad. cv; s1,s2, rrr resp; clear abd; soft, nt, bs+ ext; no edema. neuro: non focal. Laboratory Tests 04/04 1630 Toxicology Urine Opiates Screen (>2000 NG/ML) < 100.00 Methadone Screen (>300 NG/ML) 46 Barbiturate Screen (>200 NG/ML) < 60 Ur Phencyclidine Scrn (>25 NG/ML) < 6.00 Amphetamines Screen (>1000 NG/ML) < 100 U Benzodiazepines Scrn (>200 NG/ML) < 85 Urine Cocaine Screen (>300 NG/ML) < 50 Urine Cannabis Screen (>50 NG/ML) 17.00 Urines Urine Color (YEL,AMB,STR) YEL Urine Clarity (CLEAR) CLEAR Urine pH (5.0 - 8.0) 6.0 Ur Specific [place] (1.001 - 1.035) 1.010 Urine Protein (NEG,<30 MG/DL) NEG Urine Ketones (NEG) NEG Urine Nitrite (NEG) NEG Urine Bilirubin (NEG) NEG Urine Urobilinogen (0.1 - 1.0 EU/dl) 0.2 Ur Leukocyte Esterase (NEG) NEG Ur Microscopic EXAM NOT REQUIRED Urine Hemoglobin (NEG) NEG Urine Glucose (N MG/DL) NEG A/P; 56-year-old male with past medical history significant for chronic back pain, bladder cancer, prior CVA in 2016, right cervical ICA occlusion, admitted to telemetry floor with possible TIA versus CVA. Patient evaluated by neurology. Please fllow recmmendatins abot antiplatelet terapy. Pt on Plavix and aspirin. Question is if this will be switched to Aggrenox versus stay the same. Been MRI will be done tomorrow. Please follow-up echocardiogram. Carotid Doppler ultrasound findings reviewed. Continue high-dose statin. Thyroid function tests normal. Lipid profile reviewed. DVT prophylaxis: Lovenox. Patient will get PT/OT.
[2017-04-05 14:04] VITALS: BP 126/78
--- NOTE | 2017-04-05 14:05 | PN- Housestaff ---
Subjective Follow-up For: [facility] Tele-Events Since Last Visit: Normal sinus rhythm, pulse rate 67-90 Subjective: Patient visited today, was lying in bed comfortably in no acute distress, was alert and oriented. Reported complete improvement in symptoms. No fever or chills, no shortness of breathing, no chest pain, no other events. Pending MRI tomorrow, neurology recommended to continue dual antiplatelet treatment. Review of Systems Constitutional: Reports: see HPI. Objective Last 24 Hrs of Vital Signs/I&O Vital Signs Date Time Temp Pulse Resp B/P B/P Pulse O2 O2 Flow FiO2 Mean Ox Delivery Rate 04/05 1404 98.2 71 20 126/78 94 Room Air 04/05 0627 98.3 72 18 126/74 95 Room Air 04/04 2130 98.1 84 18 120/70 95 04/04 1847 97 Room Air Intake & Output 04/05 1600 04/05 0800 04/05 0000 Intake Total 480 1280 Output Total Balance 480 1280 Intake, IV 800 Intake, Oral 480 480 Patient 215 lb Weight Weight Reported by Patient Measurement Method Physical Exam General Appearance: Alert, Oriented X3, Cooperative, No Acute Distress Skin: No Significant Lesion Skin Temp/Moisture Exam: Warm/Dry Sepsis Skin Exam (color): Normal for Ethnicity HEENT: Atraumatic, EOMI, Mucous Membr. moist/pink Cardiovascular: Regular Rate, Normal S1, Normal S2 Lungs: Clear to Auscultation, Normal Air Movement Abdomen: Soft, No Tenderness Neurological: Normal Speech, Strength at 5/5 X4 Ext, Cranial Nerves 3-12 NL Extremities: No Edema Current Medications: Current Medications Sig/Donal Start time Last Medication Dose Route Stop Time Status Admin Aspirin Buffered 81 MG DAILY 04/05 1000 AC 04/05 PO 0826 Atorvastatin Calcium 80 MG DAILY@1700 04/05 1700 AC 04/05 PO 1654 Clopidogrel Bisulfate 75 MG DAILY 04/05 1000 AC 04/05 PO 0826 Enoxaparin Sodium 40 MG DAILY 04/04 1448 AC 04/05 SC 0828 Influenza Virus 0.5 ML ONCE ONE 04/04 1944 DC 04/05 Vaccine IM 04/04 1945 0830 Nicotine 7 MG DAILY 04/05 1050 AC 04/05 TOP 1251 Sodium Chloride 1,000 ML Q10H 04/04 1500 DC 04/04 IV 04/05 0059 1511 Assessment/Plan Assessment: This is a 56-year-old gentleman with past medical history significant for chronic back pain, prior CVA in 2016, right cervical ICA occlusion, who presents to the emergency room with chief complaint of lightheadedness, dizziness, numbness in left fingers. Symptoms resolved at time of her physical exam. Head CT revealing any acute pathology. Assessment #Possible CVA #Tachycardia #History of right cervical ICA occlusion Plan * The patient has passed a 4 hour window for TPA also NIH score is low (01) * oil winterizer * Formal swallow evaluation, OT, PT * Patient is on statin; will continue same for now * We will continue to all antiplatelet treatment with Plavix and aspirin per neurology * Follow Neurology consult * U tox pending * Will check thyroid function tests and lipid panel * Echocardiogram, Doppler carotid * Follow MRI of the head * DVT prophylaxis with subcutaneous Lovenox * The patient is unsure of the dose of gabapentin he takes at home, please confirm dose of gabapentin, meanwhile will continue rest of home medications. * Patient is full code Problem List: 1. TIA (transient ischemic attack) Pain Ratin Pain Location: Continue current plan Pain Goal: Pain 4 or less Pain Plan: Contoinue current plan Tomorrow's Labs & Rationales: CBC BEP
[2017-04-05 21:28] VITALS: BP 140/86
[2017-04-06 07:21] VITALS: BP 144/76
[2017-04-06 08:07] LABS: ABSOLUTE BASOPHIL COUNT 0 /CUMM (0.0-0.2); ABSOLUTE EOSINOPHIL COUNT 0.1 /CUMM (0.0-0.7); ABSOLUTE GRANULOCYTE CT 2.7 /CUMM (1.4-6.5); ABSOLUTE LYMPH COUNT 0.7 /CUMM (1.2-3.4); ABSOLUTE MONOCYTE COUNT 0.5 /CUMM (0.10-0.60); BASOPHIL % 0.5 % (0.0-2.0); EOSINOPHIL % 3.1 % (0-5); GRANULOCYTE % 67.2 % (42.2-75.2); MEAN CORPUSCULAR HGB 30.8 PG (27.0-31.0); MEAN CORPUSCULAR HGB CONC 34.4 G/DL (33.0-37.0); MEAN CORPUSCULAR VOLUME 89.6 FL (80.0-94.0); MEAN PLATELET VOLUME 8.8 FL (7.4-10.4); PLATELET COUNT 171 /CUMM (130-400); RBC DISTRIBUTION WIDTH 13.9 % (11.5-14.5); RED BLOOD CELL CT 4.91 /CUMM (4.70-6.10); WHITE BLOOD CELL COUNT 4.1 /CUMM (4.8-10.8)
--- NOTE | 2017-04-06 08:25 | PN- Housestaff ---
See Addendum Subjective Follow-up For: TIA Tele-Events Since Last Visit: NSR: 55-82 Subjective: Patient was seen and examined today. Patient was lying comfortably in bed. Denies any complaints today. Would like to go home today if possible. Denies weakness, dizziness, paralysis, dysphagia, blurry vision/double vision, headache. Patient states he has chronic numbness in his feet from previous back injury. Patient denies chest pain, palpitations, SOB, abdominal pain, n/v/c/d, hematuria/dysuria. Patient denies any trouble walking to and from the restroom this morning. No acute events overnight. Review of Systems Constitutional: Reports: no symptoms. Cardiovascular: Reports: no symptoms. Respiratory: Reports: no symptoms. Gastrointestinal: Reports: no symptoms. Genitourinary: Reports: no symptoms. Musculoskeletal: Reports: no symptoms. Neurological/Psychological: Reports: see HPI, anxiety, numbness. Objective Last 24 Hrs of Vital Signs/I&O Vital Signs Date Time Temp Pulse Resp B/P B/P Pulse O2 O2 Flow FiO2 Mean Ox Delivery Rate 04/06 0721 97.6 72 18 144/76 95 Room Air 04/05 2128 97.5 76 18 140/86 95 04/05 1404 98.2 71 20 126/78 94 Room Air Intake & Output 04/06 1600 04/06 0800 04/06 0000 Intake Total 150 100 Output Total Balance 150 100 Intake, Oral 150 100 Physical Exam General Appearance: Alert, Oriented X3, Cooperative, No Acute Distress HEENT: Atraumatic, PERRLA, EOMI, Mucous Membr. moist/pink Cardiovascular: Regular Rate, Normal S1, Normal S2 Lungs: Clear to Auscultation, Normal Air Movement Abdomen: Normal Bowel Sounds, Soft, No Tenderness Neurological: Normal Gait, Normal Speech, Strength at 5/5 X4 Ext, Normal Tone, Sensation Intact, Cranial Nerves 3-12 NL, Reflexes 2+ Extremities: No Clubbing, No Cyanosis, No Edema, Normal Pulses, No Tenderness/ Swelling Vascular: Normal Pulses, Pulses Symmetrical Current Medications: Current Medications Sig/Donal Start time Last Medication Dose Route Stop Time Status Admin Aspirin Buffered 81 MG DAILY 04/05 1000 AC 04/06 PO 0735 Atorvastatin Calcium 80 MG DAILY@1700 04/05 1700 AC 04/05 PO 1654 Clopidogrel Bisulfate 75 MG DAILY 04/05 1000 AC 04/06 PO 0735 Enoxaparin Sodium 40 MG DAILY 04/04 1448 AC 04/06 SC 0736 Lorazepam 1 MG ONCE PRN 04/06 0830 DC 04/06 IV 0848 Melatonin 10 MG AT BEDTIME 04/05 2200 AC 04/05 PO 2200 Nicotine 7 MG DAILY 04/05 1050 AC 04/06 TOP 0735 Last 24 Hrs of Lab/Philip Results Last 24 Hrs of Labs/Mics: Laboratory Tests 04/06/17 0630: Anion Gap 11, Estimated GFR > 60, BUN/Creatinine Ratio 10.0, CBC w Diff NO MAN DIFF REQ, RBC 4.91, MCV 89.6, MCH 30.8, MCHC 34.4, RDW 13.9, MPV 8.8, Gran % 67.2, Lymphocytes % 18.1 L, Monocytes % 11.1 H, Eosinophils % 3.1, Basophils % 0.5, Absolute Granulocytes 2.7, Absolute Lymphocytes 0.7 L, Absolute Monocytes 0.5, Absolute Eosinophils 0.1, Absolute Basophils 0 Orders ECHO Findings: PILAR CONCLUSIONS 1. Minimal aortic sclerosis is present in a trileaflet aortic valve with no valvular stenosis or insufficiency. 2. Mitral leaflet thickening is present with minimal to mild mitral insufficiency but no evidence of mitral valve prolapse. Mild left atrial dilatation is present. 3. The left atrial appendage is multilobed. There is normal contractility with no evidence of mass or thrombus. 4.the pulmonary venous anatomy is normal bilaterally with normal Doppler profiles. 5. The left ventricular chamber size is normal with a normal ejection fraction and no resting wall motion abnormalities. 6. The right heart structures are grossly normal. Mild tricuspid and pulmonic insufficiency are present. 7. A tiny patent foramen ovale is present. Following the injection of IV saline contrast, there is a very small resting right to left shunt noted. 8. Grade 1 atheromatous plaque is present in the distal transverse aortic arch and proximal to mid descending thoracic aorta. Assessment/Plan Assessment: This is a 56-year-old gentleman with past medical history significant for chronic back pain, prior CVA in 2016, right cervical ICA occlusion, who presents to the emergency room with chief complaint of lightheadedness, dizziness, numbness in left fingers. Symptoms resolved at time of his physical exam. Head CT revealing any acute pathology. Assessment #Possible CVA #Tachycardia #History of right cervical ICA occlusion Today (04/06) patient remains symptom free. No focal neurologoical findings NIH score: 0. MRI showed no acute infarct. PILAR that was read showed no thrombus. Patient is stable for discharge today on high dose atorvastatin to be continued for 6 more days after which he can continue his home dose. Patient is to continue dual antiplatelet treatment with aspirin and Plavix. Patient is to follow-up with his PCP and neurology. Patient was given a referral for Dr. Weber. Plan * The patient has passed a 4 hour window for TPA also NIH score is low (01) * classroom monitor - no events on tele * Patient is on statin; will continue at 80mg daily * We will continue to all antiplatelet treatment with Plavix and aspirin per neurology * Follow Neurology consult * MRI completed today with no acute findings * DVT prophylaxis with subcutaneous Lovenox * Patient is full code Dispo: Discharge home today Problem List: 1. TIA (transient ischemic attack) Pain Ratin Pain Location: chronic back pain Pain Goal: Pain 4 or less Pain Plan: continue current plan Tomorrow's Labs & Rationales: none- discharge today none- discharge today
--- NOTE | 2017-04-06 09:09 | Patient Discharge Instructions ---
Discharge Instructions General Discharge Information You were seen/treated for: TIA Special Instructions: Please follow up with your pcp within 1 week of discharge Please follow up with the neurologist within 1 week of discharge Please take 2 pills of atorvastatin daily for the next 6 days and then continue taking 1 pill daily afterwards. Diet Continue normal diet: No Recommended Diet: Heart Healthy Activity Full Activity/No Limits: No Activity Self Limited: Yes Acute Coronary Syndrome Inclusion Criteria At DC or during hospital stay patient has or had the following: ACS DIAGNOSIS No Discharge Core Measures Meds if any: Prescribed or Continued at Discharge Meds if any: NOT Prescribed or Continued at Discharge Congestive Heart Failure Inclusion Criteria At DC or during hospital stay patient has or had the following: CHF DIAGNOSIS No Discharge Core Measures Meds if any: Prescribed or Continued at Discharge Meds if any: NOT Prescribed or Continued at Discharge Cerebrovascular accident Inclusion Criteria At DC or during hospital stay patient has or had the following: CVA/TIA Diagnosis Yes Discharge Core Measures Meds if any: Prescribed or Continued at Discharge Antithrombotic Yes Statin (required if LDL =>70) Yes Anticoagulant No Meds if any: NOT Prescribed or Continued at Discharge Venous thromboembolism Inclusion Criteria VTE Diagnosis No VTE Type NONE VTE Confirmed by (Test) NONE Discharge Core Measures - Per Current guidelines, there needs to be overlap - treatment for the first 5 days of Warfarin therapy. - If discharged on Warfarin prior to 5 days of - overlap therapy, the patient will need to be - assessed for post discharge needs including - *Post discharge parental anticoagulation - *Warfarin and/or parental anticoagulation education - *Follow up date to check INR post discharge At least 5 days overlap therapy as Inpatient No Meds if any: Prescribed or Continued at Discharge Note: Overlap Therapy is Warfarin and Anticoagulant Meds if any: NOT Prescribed or Continued at Discharge
--- NOTE | 2017-04-06 09:55 | MRI REPORT ---
EXAMINATION: MR BRAIN WITHOUT CONTRAST CLINICAL INFORMATION: 56-year-old man with lightheadedness. COMPARISON: 04/04/[address], 03/07/2015 brain MRI TECHNIQUE: MRI of the brain without contrast was obtained using routine sequences. FINDINGS: The patient is again noted to have chronic proximal occlusion of the right internal carotid artery. Scattered areas of chronic embolic infarction in the right MCA territory are again visualized with some ex vacuo dilation of the right lateral ventricle. No focal reduced diffusion is seen to suggest acute or subacute cerebral ischemia. No intracranial mass, intracerebral edema, intra-axial blood products, midline shift, or extra-axial collection is visualized. The paranasal sinuses are well aerated. IMPRESSION: No imaging evidence of acute cerebral ischemia or hemorrhage. Chronic occlusion of the right internal carotid artery with scattered areas of chronic infarction in the right MCA territory.
[2017-04-06] MEDS ORDERED: LIPITOR40 M1 PO (11:33)
--- NOTE | 2017-04-06 11:43 | Discharge Summary ---
Visit Information Visit Dates Admission Date: 04/04/17 Discharge Date: 04/06/17 Hospital Course Course Attending Physician: Jabier Rai MD Primary Care Physician: Vijay MITCHELL,Jack Munson Consulting Request: Consulting Specialty: Neurology Consulting Physician: Dr. Marissa Weber [place] Course: Mr. Bhagat is a 56-year-old gentleman with past medical history significant for chronic back pain, prior CVA in 2016, right cervical ICA occlusion, who presents to the emergency room with chief complaint of lightheadedness, dizziness, numbness in left fingers with resolution of symptoms at the time of admission. On admission: Vitals: Temperature 98.1, respiratory rate 18, pulse 102, BP 137/97, 95% on room air PE: no focal neurologic findings Labs: WBC 5.7, H&H 16.0 and 47.2, platelets 219, sodium 137, potassium 4.1, chloride 102, bicarb 22, BUN 7, creatinine 0.8, glucose 114, troponin less than 0.01. EKG:Sinus tachycardia, rate 106, no significant change compared to prior, no ST- T wave abnormalities. Imaging: Chest x-ray:Unremarkable examination. Head CT: Chronic areas of infarct in the right MCA territory. No convincing superimposed acute brain ischemia. No evidence of intracranial hemorrhage. Patient was admitted to telemetry for management of the followin. TIA, ruled out CVA Patient presented with chief complaint of symptoms of lightheadedness, dizziness and numbness of left finger. Patient's symptoms resolved with no focal neurologic finding on admission. NIH score of 0. As patient has a history of CVA and history of right cervical ICA occlusion with findings of possible stroke, was admitted to telemetry. Patient was continued on dual antiplatelet therapy with aspirin and plavix. His atorvastatin was increased. Patient seen by neurology. Carotid dopplers showed stable right ICA occlusion and <50% stenosis of left ICA. MRI was negative for acute finding. PILAR negative for thrombus/ vegetations. * Patient to continue high dose atorvastatin 80mg daily for 6 more days. Then to continue atorvastatin 40mg * Patient to continue dual antiplatelet therapy * Patient to follow up with neurology Allergies: Coded Allergies: oxycodone (From OXYCONTIN) (VOMITING 07/19/16) Pertinent Lab Results: SERVICE DATE: 04/04/17- EXAM TYPE: US - [id number] DOPPLER US DUPLEX CAROTID AND VERTEBRAL CLINICAL INFORMATION: Dizziness, COMPARISON: CTA neck March 29 2015. TECHNIQUE: Real-time ultrasound and Doppler techniques (integrating B-mode 2D vascular images, Doppler spectral analysis and color flow Doppler imaging) were utilized to interrogate the extracranial carotid and vertebral arteries bilaterally. The degree of stenosis determined by criteria similar to NASCET. FINDINGS: Right common carotid artery peak systolic velocity is 148 cm/s with an end-diastolic velocity of 16 cm/s. There is no Doppler flow within the right internal carotid artery which was noted to be occluded on the March 29 2015 and neck CTA. There is antegrade flow within the right vertebral artery. There is atherosclerotic calcification of the right carotid bifurcation. Left common carotid artery peak systolic velocity ranges between 90 to 185 cm/s with a maximal end-diastolic velocity of 45 cm/s. Left internal carotid artery peak systolic velocity ranges between 84 and 124 cm/s with a maximal end-diastolic velocity of 57 cm/s. There is antegrade flow within the left vertebral artery. There is calcific atherosclerotic disease of the left carotid bifurcation. IMPRESSION: - Stable appearing chronic occlusion of the right internal carotid artery as demonstrated on the neck CTA from 03/29/2015. - There is a less than 50% stenosis involving the left internal carotid artery by sonographic criteria. SERVICE DATE: 04/04/17 EXAM TYPE: CAT - CT HEAD WO IV CONTRAST Addendum: This critical result was communicated with Dr. Bain at 11:37AM on 04/04/2017 and the content and urgency was understood at the time of direct communication. Addendum Signed by: Rowdy Maddox MD 04/04/17 3900 EXAMINATION: CT HEAD WITHOUT CONTRAST CLINICAL INFORMATION: Stroke symptoms. COMPARISON: MRI of the brain from 03/07/2015. TECHNIQUE: Contiguous axial imaging was performed from the skull base to vertex without intravenous administration of contrast. DLP: 632 mGy-cm FINDINGS: There is chronic encephalomalacia and gliosis involving the right MCA territory, unchanged from the prior study. No definitive evolving territorial infarct is evident. No hemorrhage. The ventricles, sulci, and extra-axial series of spaces are normal in caliber and configuration apart from some mild ex vacuo dilatation of the right lateral ventricle, unchanged. No extra-axial collection, mass effect, or shift of the normally midline structures. No acute osseous abnormality. The imaged paranasal sinuses, mastoid air cells and middle ear cavities are clear. No acute soft tissue findings. IMPRESSION: Chronic areas of infarct in the right MCA territory. No convincing superimposed acute brain ischemia. No evidence of intracranial hemorrhage. The referring provider has been paged to directly communicate these results per stroke protocol. SERVICE DATE: 04/04/171147 EXAM TYPE: RAD - XRY-PORTABLE CHEST XRAY EXAMINATION: XR PORTABLE CHEST CLINICAL INFORMATION: Shortness of breath with bilateral wheezing COMPARISON: 03/05/2015 TECHNIQUE: Portable AP upright view of the chest was obtained. FINDINGS: No significant abnormality is noted involving the heart, lungs, mediastinum, bony thorax or soft tissues. IMPRESSION: Unremarkable examination. SERVICE DATE: 04/06/17- EXAM TYPE: MRI - MRI-HEAD W/O BEST EXAMINATION: MR BRAIN WITHOUT CONTRAST CLINICAL INFORMATION: 56-year-old man with lightheadedness. COMPARISON: 04/04/[address], 03/07/2015 brain MRI TECHNIQUE: MRI of the brain without contrast was obtained using routine sequences. FINDINGS: The patient is again noted to have chronic proximal occlusion of the right internal carotid artery. Scattered areas of chronic embolic infarction in the right MCA territory are again visualized with some ex vacuo dilation of the right lateral ventricle. No focal reduced diffusion is seen to suggest acute or subacute cerebral ischemia. No intracranial mass, intracerebral edema, intra-axial blood products, midline shift, or extra-axial collection is visualized. The paranasal sinuses are well aerated. IMPRESSION: No imaging evidence of acute cerebral ischemia or hemorrhage. Chronic occlusion of the right internal carotid artery with scattered areas of chronic infarction in the right MCA territory. Disposition Summary Disposition Principal Diagnosis: TIA Additional Diagnosis: H/O CVA, H/O Right Cervical ICA Discharge Disposition: home or self care Discharge Instructions General Discharge Information Code Status: Full Code Patient's Diet: Heart Healthy Patient's Activity: Self-Limited Follow-Up Instructions/Appts: 1. Please follow up with your pcp within 1 week of discharge 2. Please follow up with the neurologist within 1 week of discharge 3. Please take 2 pills of atorvastatin 40mg daily for the next 6 days and then continue taking 1 pill daily afterwards. Medications at Discharge Discharge Medications: Stop taking the following medications: Gabapentin (Neurontin) (Unknown Strength) CAPSULE ORAL THREE TIMES DAILY Hydrocodone/Acetaminophen ([place] 7.5-325 Tablet) 7.5 MG-325 MG TABLET ORAL as needed for PAIN Continue taking these medications: Clopidogrel Bisulfate (Plavix) 75 MG TABLET 1 Tablet ORAL DAILY Comments: Last Taken: 04/06/17 Time: 0730 AM Aspirin (Ecotrin*) 81 MG TABLET. 1 Tablet ORAL DAILY Comments: Last Taken: 04/06/17 Time: 0730 AM Cyclobenzaprine HCl (Cyclobenzaprine HCl) 10 MG TABLET 1 Tablet ORAL THREE TIMES DAILY Comments: NOT GIVEN IN HOSPITAL The following medications have been changed: Old: Atorvastatin Calcium (Lipitor) 40 MG TABLET 1 Tablet ORAL DAILY New: Atorvastatin Calcium (Lipitor) 40 MG TABLET 1 Tablet ORAL DAILY Qty = 30 Instructions: Please take 2 pills daily from 04/06 to 04/11. Then continue taking 1 pill daily starting on 04/12. Comments: Last Taken: 04/05/17 Time: 5 PM Copies To: Vijay MITCHELL,Jack Munson Attending MD Review Statement Documenting Attending: Jabier Rai MD Other Findings: The patient was seen and discussed with house staff. Agree with plan of care as outlined. OK to discharge to home with follow-up with Neuro (Dr. Weber) and PCP.
--- NOTE | 2017-04-06 11:51 | PN- Neurology ---
Subjective Subjective: Asymptomatic and anxious for discharge to home. Fully dressed. Objective Vital Signs and I&Os Vital Signs Date Time Temp Pulse Resp B/P B/P Pulse O2 O2 Flow FiO2 Mean Ox Delivery Rate 04/06 720 97.6 72 18 144/76 95 Room Air 04/058 97.5 76 18 140/86 95 04/05 1404 98.2 71 20 126/78 94 Room Air Intake & Output 04/06 1600 04/06 0800 04/06 0000 04/05 1600 04/05 0800 04/05 0000 Intake Total 150 636 640 8004 Output Total Balance 150 705 272 3053 Intake, IV 800 Intake, Oral 150 100 480 480 Patient 215 lb Weight Weight Reported by Patient Measurement Method Current Medications: Current Medications Sig/Donal Start time Last Medication Dose Route Stop Time Status Admin Aspirin Buffered 81 MG DAILY 04/05 1000 AC 04/06 PO 0735 Atorvastatin Calcium 80 MG DAILY@1700 04/05 1700 AC 04/05 PO 1654 Clopidogrel Bisulfate 75 MG DAILY 04/05 1000 AC 04/06 PO 0735 Enoxaparin Sodium 40 MG DAILY 04/04 1448 AC 04/06 SC 0736 Lorazepam 1 MG ONCE PRN 04/06 0830 DC 04/06 IV 0848 Melatonin 10 MG AT BEDTIME 04/05 2200 AC 04/05 PO 2200 Nicotine 7 MG DAILY 04/05 1050 AC 04/06 TOP 0735 Results Last 24 Hours of Lab Results: Laboratory Tests 04/06 0630 Chemistry Sodium (137 - 145 mmol/L) 138 Potassium (3.5 - 5.1 mmol/L) 4.1 Chloride (98 - 107 mmol/L) 104 Carbon Dioxide (22 - 30 mmol/L) 23 Anion Gap (5 - 16) 11 BUN (9 - 20 mg/dL) 9 Creatinine (0.7 - 1.2 mg/dL) 0.9 Estimated GFR (>60 ml/min) > 60 BUN/Creatinine Ratio (7 - 25 %) 10.0 Hematology CBC w Diff NO MAN DIFF REQ WBC (4.8 - 10.8 /CUMM) 4.1 L RBC (4.70 - 6.10 /CUMM) 4.91 Hgb (14.0 - 18.0 G/DL) 15.1 Hct (42 - 52 %) 44.0 MCV (80.0 - 94.0 FL) 89.6 MCH (27.0 - 31.0 PG) 30.8 MCHC (33.0 - 37.0 G/DL) 34.4 RDW (11.5 - 14.5 %) 13.9 Plt Count (130 - 400 /CUMM) 171 MPV (7.4 - 10.4 FL) 8.8 Gran % (42.2 - 75.2 %) 67.2 Lymphocytes % (20.5 - 51.1 %) 18.1 L Monocytes % (1.7 - 9.3 %) 11.1 H Eosinophils % (0 - 5 %) 3.1 Basophils % (0.0 - 2.0 %) 0.5 Absolute Granulocytes (1.4 - 6.5 /CUMM) 2.7 Absolute Lymphocytes (1.2 - 3.4 /CUMM) 0.7 L Absolute Monocytes (0.10 - 0.60 /CUMM) 0.5 Absolute Eosinophils (0.0 - 0.7 /CUMM) 0.1 Absolute Basophils (0.0 - 0.2 /CUMM) 0 Recent Imaging Studies: PATIENT: JEFERSON HUERTA PRESENT AGE: 56 PATIENT ACCOUNT NO: [id number] : 58 LOCATION: 1NO ORDERING PHYSICIAN: Kiko Ralph MD SERVICE DATE: 04/06/17- EXAM TYPE: MRI - MRI-HEAD W/O BEST EXAMINATION: MR BRAIN WITHOUT CONTRAST CLINICAL INFORMATION: 56-year-old man with lightheadedness. COMPARISON: 04/04/[address], 03/07/2015 brain MRI TECHNIQUE: MRI of the brain without contrast was obtained using routine sequences. FINDINGS: The patient is again noted to have chronic proximal occlusion of the right internal carotid artery. Scattered areas of chronic embolic infarction in the right MCA territory are again visualized with some ex vacuo dilation of the right lateral ventricle. No focal reduced diffusion is seen to suggest acute or subacute cerebral ischemia. No intracranial mass, intracerebral edema, intra-axial blood products, midline shift, or extra-axial collection is visualized. The paranasal sinuses are well aerated. IMPRESSION: No imaging evidence of acute cerebral ischemia or hemorrhage. Chronic occlusion of the right internal carotid artery with scattered areas of chronic infarction in the right MCA territory. DICTATED BY: Jeanne Silver MD DATE/TIME DICTATED:04/06/17947 LATCHER:SAY DATE/TIME TRANSCRIBED:04/06/17947 CONFIDENTIAL, DO NOT COPY WITHOUT APPROPRIATE AUTHORIZATION. <Electronically signed in Other Vendor System> SIGNED BY: Adrianne MITCHELL,[facility] 04/06/17 0988 Assessment/Plan Assessment: possible TIA in a 56-year-old ongoing smoker with known right internal carotid artery occlusion and a prior small right MCA territory ischemic stroke, remote history of traumatic brain injury Plan: Echocardiogram, tele continue dual anti-platelet therapy and statin TIA/stroke education smoking cessation
== END 2017-04-06 12:22 | DRG 69 ==
LOC: ERH 10:52 → ERHI 13:37 → 1NO 13:37 → ENRESERV 16:04 → ENTRNSPT 17:50 → EDTRNSPTSTS 18:00 → 1NO 18:12 → CMPTRNSPT 19:36 → 1NO 04-06 10:24 → ENPENDDIS 04-06 11:51 → 1NO 04-06 12:22
PROVIDERS: Internal Medicine; Radiology Vascular & Interventional Radiology
DX: G45.9 Transient cerebral ischemic attack, unspecified (principal); I65.23 Occlusion and stenosis of bilateral carotid arteries; G89.29 Other chronic pain; R00.0 Tachycardia, unspecified; M54.9 Dorsalgia, unspecified; Z86.73 Personal history of transient ischemic attack (TIA), and cerebral infarction without residual deficits; Z85.51 Personal history of malignant neoplasm of bladder; Z87.820 Personal history of traumatic brain injury; F17.210 Nicotine dependence, cigarettes, uncomplicated
CPT/HCPCS: 1NSP; 70551; 36415; 71045; 80307; 81003; 82436; 93005; 93010; 97166-GO; J1650